=== PATIENT | male | born 1960 | race Caucasian/White ===

== ENCOUNTER 2019-11-30 15:39 | Emergency (ER) | payer BC ==
[2019-11-30] MEDS ORDERED: ISOVUE-370 76% 100ML VIAL As Ordered ONE (19:14)
[2019-12-01] MEDS ORDERED: CHLORTHALIDONE 25 MG TAB As Ordered ONE (13:39)
[2019-12-01] MEDS ORDERED: PILL CUTTER 1 EACH XX ONE (13:39)
[2019-12-01] MEDS ORDERED: CHLORTHALIDONE 25 MG TAB ONE (13:39)
[2019-12-27 17:23] LABS: ALBUMIN 4.1 GM/DL (3.2-5.2); ALT/SGPT 27 U/L (12-78); BILIRUBIN,TOTAL 0.6 MG/DL (0.2-1.0); BLOOD UREA NITROGEN 21 MG/DL (7-18); CALCIUM LEVEL 8.8 MG/DL (8.5-10.1); CARBON DIOXIDE LEVEL 26 MEQ/L (21-32); CHLORIDE LEVEL 108 MEQ/L (98-107); CK-MB VALUE MASS 2.6 NG/ML (<3.6); CPK CREATINE PHOSPHOKINASE 215 U/L (39-308); CREATININE FOR GFR 0.92 MG/DL (0.70-1.30); GLOMERULAR FILTRATION RATE > 60.0 (>56); GLUCOSE, FASTING 127 MG/DL (70-100); LIPASE 90 U/L (73-393); MB/CK RELATIVE INDEX 1.21 (< OR =4); SODIUM LEVEL 141 MEQ/L (136-145)
[2020-01-03 14:17] LABS: HEMATOCRIT 43.5 % (42.0-52.0); HEMOGLOBIN 15.4 g/dl (13.5-17.5); MEAN CORPUSCULAR HEMOGLOBIN 31.5 pg (27.0-33.0); MEAN CORPUSCULAR HGB CONC 35.4 g/dl (32.0-36.5); PLATELET COUNT, AUTOMATED 179 10^3/uL (150-450); RED BLOOD COUNT 4.89 10^6/uL (4.30-6.10)
[2020-01-03 14:18] LABS: INR 1.03; PROTHROMBIN TIME 13.7 SECONDS (11.8-14.0)
--- NOTE | 2020-01-22 15:47 | ECGEPIP ---
SINUS RHYTHM NORMAL ECG NO PRIOR DUE TO DOWNTIME SEE SCANNED DOWNTIME REPORT MTDD
== END 2019-11-30 21:35 | disposition home or self-care (01) ==
LOC: M ED 15:39
DX: R06.02 Shortness of breath (principal); I10 Essential (primary) hypertension; E78.5 Hyperlipidemia, unspecified; Z79.899 Other long term (current) drug therapy
CPT/HCPCS: 36415; 71275; 80053; 82550; 82553; 83690; 85027; 85610; 87486; 87581; 87633; 87798; 93005; 99284; Q9967